=== PATIENT | female | born 1995 | race Hispanic/Latino ===

== ENCOUNTER 2023-09-04 03:41 | Inpatient (IN) | payer OTHER ==
[~2023-09-04] VITALS: Ht 160 cm; Wt 56.8 kg
[2023-09-04 07:14] LABS: BASO # 0.1 10^3/uL (0.0-0.2); BASO % 0.6 % (0.0-1.0); HEMATOCRIT 40.1 % (36.0-47.0); LYMPH % 9.3 % (24.0-44.0); MEAN CORPUSCULAR HEMOGLOBIN 26.3 pg (27.0-33.0); MEAN CORPUSCULAR HGB CONC 32.4 g/dl (32.0-36.5); MEAN CORPUSCULAR VOLUME 81.2 fl (80.0-96.0); MONO # 0.2 10^3/uL (0.0-0.8); MONO % 1.8 % (2.0-8.0); NEUTROPHILS % 87.6 % (36.0-66.0); PLATELET COUNT, AUTOMATED 376 10^3/uL (150-450); RED BLOOD COUNT 4.94 10^6/uL (4.00-5.40); WHITE BLOOD COUNT 10.3 10^3/uL (4.0-10.0)
[2023-09-04] MEDS: ONDANSETRON 4MG 2ML VIAL IV ONE (07:22)
[2023-09-04] MEDS: NS 1,000 ML IV ONE (07:23)
[2023-09-04 07:31] LABS: LIPASE 29 U/L (12-53)
[2023-09-04 07:49] LABS: ACETONE/KETONE 3.69 MMOL/L (0.02-0.27); CPK CREATINE PHOSPHOKINASE 61 U/L (34-145)
[2023-09-04 07:55] LABS: ALBUMIN 4.4 G/DL (3.2-5.2); ALKALINE PHOSPHATASE 102 U/L (46-116); ALT/SGPT 23 U/L (7.0-40); AST/SGOT 19 U/L (<34); BILIRUBIN,DIRECT < 0.1 MG/DL (<0.4); BILIRUBIN,TOTAL 0.3 MG/DL (0.3-1.2); BLOOD UREA NITROGEN 11 MG/DL (9-23); CALCIUM LEVEL 10.2 MG/DL (8.5-10.1); CARBON DIOXIDE LEVEL 21 MMOL/L (20-31); CHLORIDE LEVEL 101 MMOL/L (98-107); CK-MB VALUE MASS < 1.0 NG/ML (<3.6); CREATININE FOR GFR 0.46 MG/DL (0.55-1.30); GLOMERULAR FILTRATION RATE > 60.0 (>60); GLUCOSE, FASTING 496 MG/DL (60-100); MB/CK RELATIVE INDEX 1.63 (< OR =4); POTASSIUM SERUM 4.1 MMOL/L (3.5-5.1); SODIUM LEVEL 137 MMOL/L (136-145); TOTAL PROTEIN 7.8 G/DL (5.7-8.2)
[2023-09-04 08:01] LABS: HCG, SERUM QUALITATIVE NEGATIVE (NEGATIVE)
[2023-09-04 08:04] LABS: VENOUS BASE EXCESS -4.5 (-2.0-2.0); VENOUS HCO3 21.8 MMOL/L (23.0-27.0); VENOUS O2 SATURATION 69.7 % (60.0-80.0); VENOUS PARTIAL PRESSURE CO2 45.1 mmHg (38.0-50.0); VENOUS PARTIAL PRESSURE O2 37.9 mmHg (30.0-50.0); VENOUS PH 7.303 UNITS (7.330-7.430); VENOUS STANDARD HCO3 20.2 MMOL/L; VENOUS TOTAL CO2 23.2 MMOL/L (24.0-28.0)
[2023-09-04] MEDS ORDERED: ACET-897 PO (08:43)
[2023-09-04] MEDS: HumuLIN R (REGULAR) INSULIN (NovoLIN R) **100U/ML** PER UNIT IV ONE (08:50)
[2023-09-04] MEDS ORDERED: HOME MED LIST COMPLETE! XX SCH (08:50)
[2023-09-04 09:14] LABS: HEMOGLOBIN A1c 13.6 % (4.0-6.0)
[2023-09-04 09:33] LABS: OSMOLALITY SERUM 311 MOSM/KG (275-295)
[2023-09-04] MEDS ORDERED: GLUCOSE 4 GM CHEW PO PRN (10:25)
[2023-09-04] MEDS ORDERED: DEXTROSE 50% 50ML SYRINGE IV PRN (10:25)
[2023-09-04] MEDS ORDERED: GLUCAGON INJ 1MG VIAL SC PRN (10:25)
[2023-09-04 11:03] LABS: C REACTIVE PROTEIN QUANTITATIV < 0.40 MG/DL (<1.0)
[2023-09-04 11:04] LABS: CHOLESTEROL LEVEL 227 MG/DL (<200); CHOLESTEROL RISK RATIO 6.37 (<5); HDL CHOLESTEROL 35.6 MG/DL (>40); LDL CHOLESTEROL 151.8 MG/DL (<100); NON-HDL-C 191.4 MG/DL; TRIGLYCERIDES LEVEL 198 MG/DL (<150)
[2023-09-04 11:07] LABS: FREE T4 1.17 NG/DL (0.89-1.76); THYROID STIMULATING HORMONE 0.859 uIU/ML (0.55-4.78); TOTAL 25(OH) VITAMIN D 15.6 NG/ML (20.0-100.0)
[2023-09-04] MEDS: NS 1,000 ML IV SCH (11:27)
[2023-09-04] MEDS: PANTOPRAZOLE 40MG TAB (PROTONIX) PO SCH (11:27)
[2023-09-04] MEDS: NS 500 ML IV ONE (11:27)
[2023-09-04 11:37] LABS: BLOOD UREA NITROGEN 10 MG/DL (9-23); CALCIUM LEVEL 9.3 MG/DL (8.5-10.1); CARBON DIOXIDE LEVEL 21 MMOL/L (20-31); CHLORIDE LEVEL 106 MMOL/L (98-107); CREATININE FOR GFR 0.39 MG/DL (0.55-1.30); GLOMERULAR FILTRATION RATE > 60.0 (>60); GLUCOSE, FASTING 326 MG/DL (60-100); POTASSIUM SERUM 3.8 MMOL/L (3.5-5.1); SODIUM LEVEL 138 MMOL/L (136-145)
[2023-09-04] MEDS: INSULIN LISPRO (NovoLOG) PER UNIT SC SCH ×2 (13:44→21:05)
[2023-09-04 16:45] VITALS: BP 112/78; TEMP 98.2; O2SAT 98
[2023-09-04 20:34] VITALS: BP 119/79; TEMP 98.1; O2SAT 99
[2023-09-04] MEDS: LEVEMIR (INSULIN DETEMIR) 1 UNITS/0.01ML SC SCH (21:06)
[2023-09-05 06:13] LABS: HEMATOCRIT 35.1 % (36.0-47.0); HEMOGLOBIN 11.3 g/dl (12.0-15.5); MEAN CORPUSCULAR HEMOGLOBIN 26.6 pg (27.0-33.0); MEAN CORPUSCULAR HGB CONC 32.2 g/dl (32.0-36.5); MEAN CORPUSCULAR VOLUME 82.6 fl (80.0-96.0); PLATELET COUNT, AUTOMATED 309 10^3/uL (150-450); RED BLOOD COUNT 4.25 10^6/uL (4.00-5.40); WHITE BLOOD COUNT 9.8 10^3/uL (4.0-10.0)
[2023-09-05 06:25] VITALS: BP 122/79; TEMP 97.9; O2SAT 99
[2023-09-05 06:36] LABS: ALBUMIN 3.2 G/DL (3.2-5.2); ALKALINE PHOSPHATASE 75 U/L (46-116); ALT/SGPT 18 U/L (7.0-40); AST/SGOT 13 U/L (<34); BILIRUBIN,TOTAL 0.3 MG/DL (0.3-1.2); BLOOD UREA NITROGEN 8 MG/DL (9-23); CALCIUM LEVEL 8.6 MG/DL (8.5-10.1); CARBON DIOXIDE LEVEL 25 MMOL/L (20-31); CHLORIDE LEVEL 107 MMOL/L (98-107); CREATININE FOR GFR 0.39 MG/DL (0.55-1.30); GLOMERULAR FILTRATION RATE > 60.0 (>60); GLUCOSE, FASTING 250 MG/DL (60-100); POTASSIUM SERUM 3.8 MMOL/L (3.5-5.1); SODIUM LEVEL 138 MMOL/L (136-145); TOTAL PROTEIN 6.1 G/DL (5.7-8.2)
[2023-09-05] MEDS: METOCLOPRAMIDE 10MG TAB PO PRN (08:34)
[2023-09-05 12:00] VITALS: BP 134/94; TEMP 97.7; O2SAT 98
[2023-09-05] MEDS: ACETAMINOPHEN TAB 650MG DOSE (2X325MG) PO PRN (13:08)
[2023-09-05] MEDS: ASPIRIN 81MG ENTERIC TABLET PO SCH (16:33)
[2023-09-05] MEDS: VITAMIN D 50,000 UNITS CAPSULE (ERGOCALCIFEROL 1.25MG) PO SCH (16:33)
[2023-09-05 20:07] VITALS: BP 137/92; TEMP 98.1; O2SAT 98
[2023-09-05] MEDS: LEVEMIR (INSULIN DETEMIR) 1 UNITS/0.01ML SC SCH (21:33)
[2023-09-06 04:12] VITALS: BP 125/82; TEMP 97.9; O2SAT 100
[2023-09-06 06:35] LABS: BLOOD UREA NITROGEN 8 MG/DL (9-23); CALCIUM LEVEL 8.8 MG/DL (8.5-10.1); CARBON DIOXIDE LEVEL 26 MMOL/L (20-31); CHLORIDE LEVEL 104 MMOL/L (98-107); CREATININE FOR GFR 0.39 MG/DL (0.55-1.30); GLOMERULAR FILTRATION RATE > 60.0 (>60); GLUCOSE, FASTING 262 MG/DL (60-100); MAGNESIUM LEVEL 1.6 MG/DL (1.8-2.4); POTASSIUM SERUM 3.7 MMOL/L (3.5-5.1); SODIUM LEVEL 138 MMOL/L (136-145)
[2023-09-06] MEDS: LEVEMIR (INSULIN DETEMIR) 1 UNITS/0.01ML SC SCH (09:01)
[2023-09-06] MEDS: MAG SULF 1GM/100ML (MAG RUN) 1 GM in IV 1 EA IV SCH (09:56)
[2023-09-06 12:00] VITALS: BP 138/98; TEMP 97.9; O2SAT 98
[2023-09-06] MEDS: POTASSIUM CHLORIDE 10MEQ SR TABLET PO SCH (14:23)
[2023-09-06 20:11] VITALS: BP 147/101; TEMP 97.9; O2SAT 98
[2023-09-07 04:00] VITALS: BP 125/83; TEMP 97.9; O2SAT 96
[2023-09-07 06:32] LABS: BLOOD UREA NITROGEN 8 MG/DL (9-23); CALCIUM LEVEL 9.1 MG/DL (8.5-10.1); CARBON DIOXIDE LEVEL 27 MMOL/L (20-31); CHLORIDE LEVEL 104 MMOL/L (98-107); CREATININE FOR GFR 0.33 MG/DL (0.55-1.30); GLOMERULAR FILTRATION RATE > 60.0 (>60); GLUCOSE, FASTING 311 MG/DL (60-100); MAGNESIUM LEVEL 1.8 MG/DL (1.8-2.4); POTASSIUM SERUM 4.2 MMOL/L (3.5-5.1); SODIUM LEVEL 137 MMOL/L (136-145)
[2023-09-07 08:28] VITALS: BP 144/86
[2023-09-07] MEDS ORDERED: VITAMIN D 50,000 UNITS CAPSULE (ERGOCALCIFEROL 1.25MG) PO SCH (09:00)
[2023-09-07] MEDS ORDERED: VITAMIN D 1,000 INTERNATIONAL UNITS TABLET PO SCH (10:31)
[2023-09-07] MEDS ORDERED: PEN1MIS15 SC (11:04)
[2023-09-07] MEDS ORDERED: FREEMIS42 TOP (11:04)
[2023-09-07] MEDS ORDERED: CVS1KIT XX (11:04)
[2023-09-07] MEDS ORDERED: CHOL1STR MC (11:04)
[2023-09-07] MEDS ORDERED: LISI10TA22 PO (11:04)
[2023-09-07] MEDS ORDERED: VITAD1000T PO (11:04)
[2023-09-07] MEDS ORDERED: INSUDET SC (11:04)
[2023-09-07] MEDS ORDERED: INSUHUMDS SC (11:04)
[2023-09-07] MEDS ORDERED: GNPPAD5 XX (11:04)
[2023-09-07] MEDS ORDERED: ASPI81TAEC PO (11:04)
[2023-09-07 12:00] VITALS: BP 144/111; TEMP 97.9; O2SAT 96
[2023-09-07] MEDS ORDERED: LEVEMIR (INSULIN DETEMIR) 1 UNITS/0.01ML SC SCH (21:00)
== END 2023-09-07 14:05 | disposition home or self-care (01) | DRG 420 ==
LOC: M ED 03:41 → M ED INP 03:42 → M MSPAV 16:43 → OBSVTOIN 09-05 11:02
PROVIDERS: ADMIT Hospitalist; ATTEND Hospitalist
DX: E11.65 Type 2 diabetes mellitus with hyperglycemia (principal); E83.42 Hypomagnesemia; I10 Essential (primary) hypertension; Z88.0 Allergy status to penicillin; E55.9 Vitamin D deficiency, unspecified; E78.5 Hyperlipidemia, unspecified

== ENCOUNTER → 2023-09-12 | Outpatient (REF) | payer OTHER ==
[~2023-09-12] MED LIST: ACET-897 PO; ASPI81TAEC PO; CHOL1STR MC; CVS1KIT XX; FREEMIS42 TOP; GNPPAD5 XX; INSUDET SC; INSUHUMDS SC; LISI10TA22 PO; PEN1MIS15 SC; VITAD1000T PO
[2023-09-12 17:10] LABS: MAU/CREAT RATIO 553.1 MCG/MG (0.0-30.0)
== END ==
LOC: M LAB REF 16:14
PROVIDERS: ATTEND Nurse Practitioner Family
DX: E11.8 Type 2 diabetes mellitus with unspecified complications (principal)

== ENCOUNTER → 2023-09-25 | Outpatient (REF) | payer OTHER ==
[2023-09-25 13:13] LABS: CHOLESTEROL LEVEL 177 MG/DL (<200); CHOLESTEROL RISK RATIO 5.23 (<5); HDL CHOLESTEROL 33.8 MG/DL (>40); LDL CHOLESTEROL 109.4 MG/DL (<100); NON-HDL-C 143.2 MG/DL; TRIGLYCERIDES LEVEL 169 MG/DL (<150)
[2023-09-25 13:26] LABS: HEMOGLOBIN A1c 12.3 % (4.0-6.0)
[2023-09-26 09:52] LABS: C-PEPTIDE 1.91 ng/mL (0.80-3.85)
== END ==
LOC: M LAB REF 12:22
PROVIDERS: ATTEND Nurse Practitioner Family
DX: E11.8 Type 2 diabetes mellitus with unspecified complications (principal); Z11.9 Encounter for screening for infectious and parasitic diseases, unspecified

== ENCOUNTER → 2023-12-05 | Outpatient (REF) | payer OTHER ==
[2023-12-05 15:12] LABS: CREATININE, URINE 46.5 MG/DL; MAU/CREAT RATIO 412.9 MCG/MG (0.0-30.0)
== END ==
LOC: M LAB REF 11:57
PROVIDERS: ATTEND Nurse Practitioner Family
DX: E11.29 Type 2 diabetes mellitus with other diabetic kidney complication (principal)

== ENCOUNTER → 2024-02-26 | Outpatient (REF) | payer OTHER ==
[2024-02-26 13:03] LABS: CREATININE, URINE 103.4 MG/DL
[2024-02-26 13:16] LABS: MAU/CREAT RATIO 371.3 MCG/MG (0.0-30.0)
== END ==
LOC: M LAB REF 12:12
PROVIDERS: ATTEND Nurse Practitioner Family
DX: E11.8 Type 2 diabetes mellitus with unspecified complications (principal)

== ENCOUNTER → 2024-05-28 | Outpatient (REF) | payer OTHER ==
[2024-05-28 15:59] LABS: CREATININE, URINE 72.7 MG/DL; MAU/CREAT RATIO 411.2 MCG/MG (0.0-30.0)
== END ==
LOC: M LAB REF 13:51
PROVIDERS: ATTEND Nurse Practitioner Family
DX: E11.29 Type 2 diabetes mellitus with other diabetic kidney complication (principal)

== ENCOUNTER → 2024-08-31 | Outpatient (REF) | payer OTHER ==
[~2024-08-31] MED LIST changes: +BLOO-308 XX; -CVS1KIT XX
[2024-08-31 12:29] LABS: APPEARANCE, URINE CLEAR (CLEAR); BACTERIA, URINE AUTO 1+ (NEGATIVE); BILIRUBIN, URINE AUTO NEGATIVE (NEGATIVE); BLOOD, URINE BLOOD 3+ (NEGATIVE); GLUCOSE, URINE (UA) AUTO NEGATIVE (NEGATIVE); KETONE, URINE AUTO NEGATIVE (NEGATIVE); LEUKOCYTE ESTERASE, URINE AUTO NEGATIVE (NEGATIVE); MUCUS, URINE SMALL (NEGATIVE); NITRITE, URINE AUTO NEGATIVE (NEGATIVE); PROTEIN, URINE AUTO 2+ mg/dL (NEGATIVE); RBC, URINE AUTO 1 /HPF (0-3); SPECIFIC GRAVITY URINE AUTO 1.012 (1.002-1.035); SQUAMOUS EPITHELIAL CELL UR AU 3 /HPF (0-6); UROBILINOGEN, URINE AUTO 0.2 mg/dL (0.0-2.0); WBC, URINE AUTO 2 /HPF (0-3)
== END ==
LOC: M LAB REF 11:46
PROVIDERS: ATTEND Nurse Practitioner Family
DX: R93.89 Abnormal findings on diagnostic imaging of other specified body structures (principal)